=== PATIENT | female | born 1970 | race Two or more races ===

== ENCOUNTER 2023-08-25 20:14 | Emergency (ER) | payer OTHER ==
[~2023-08-25] VITALS: Ht 154.9 cm; Wt 57.6 kg
[~2023-08-25 20:14] MED LIST: MAXITROL EYE DRO5 ML OP
== END 2023-08-25 21:10 | disposition home or self-care (01) ==
LOC: ER 20:14
DX: J02.8 Acute pharyngitis due to other specified organisms (principal)